=== PATIENT | male | born 1965 ===

== ENCOUNTER → 2020-01-06 | Outpatient (CLI) | payer BC ==
[~2020-01-06] MED LIST: NAPR500 PO; TRAM50 PO
[2020-01-06 14:15] LABS: BASOPHILS ABSOLUTE AUTO 0.08 K/mm3 (0.00-0.23); BASOPHILS PERCENT AUTO 1 % (0-2); EOSINOPHILS ABSOLUTE AUTO 0.26 K/mm3 (0.00-0.68); EOSINOPHILS PERCENT AUTO 4 % (0-6); Hematocrit 44.7 % (37.0-53.0); Hemoglobin 15.2 g/dL (13.5-17.5); IMMATURE GRAN ABSOLUTE AUTO 0.02 K/mm3 (0.00-0.10); IMMATURE GRAN PERCENT AUTO 0 % (0-1); LYMPHOCYTES ABSOLUTE AUTO 1.44 K/mm3 (0.84-5.20); LYMPHOCYTES PERCENT AUTO 22 % (21-46); MONOCYTES ABSOLUTE AUTO 0.57 K/mm3 (0.16-1.47); MONOCYTES PERCENT AUTO 9 % (4-13); Mean Corpuscular Volume 100 fL (80-100); Mean Platelet Volume 9.6 fL (9.1-12.4); NEUTROPHILS PERCENT AUTO 64 % (41-73); Platelet Count 254 K/mm3 (150-400); RDW Coefficient Variation 12.7 % (11.7-14.2); RDW Standard Deviation 46.9 fL (35.1-46.3); Red Blood Cell Count 4.47 M/mm3 (4.30-5.90); White Blood Cell Count 6.57 K/mm3 (4.00-11.30)
[2020-01-06 14:28] LABS: Alanine Aminotransfer (ALT/SGP 54 U/L (12-78); Albumin, Blood 3.7 g/dL (3.4-5.0); Albumin/Globulin Ratio 0.9 (0.8-1.8); Alk Phos 84 U/L (40-126); Anion Gap 4 mmol/L (6-16); Aspartate Aminotrans (AST/SGOT 39 U/L (12-37); Bilirubin, Total 0.5 mg/dL (0.1-1.0); Blood Urea Nitrogen 12 mg/dL (8-24); Bun/Creatinine Ratio 14.6 (12.0-20.0); CO2, Blood 32 mmol/L (21-32); Calcium, Blood 9.1 mg/dL (8.5-10.1); Chloride, Blood 104 mmol/L (98-108); Cholesterol 258 mg/dL (50-200); Creatinine, Blood 0.82 mg/dL (0.60-1.20); Globulin, Blood 4.3 g/dL (2.2-4.0); Glomerular Filtration Rate >60 (60-); Glucose, Blood 98 mg/dL (70-99); HDL Cholesterol 86 mg/dL (>39); LDL/HDL RATIO 1.9; Low Density Lipoprotein Chol 162 mg/dL (<110); Potassium, Blood 4.9 mmol/L (3.5-5.5); Sodium, Blood 140 mmol/L (136-145); Triglycerides 50 mg/dL (30-160); Very Low Density Lipoprot Chol 10 mg/dL (6-32)
== END | disposition home or self-care (01) ==
LOC: LAB SHORT 14:12 → LAB EV 14:12
PROVIDERS: Family Medicine
DX: I10 Essential (primary) hypertension (principal)
CPT/HCPCS: 80053; 80061; 85025

== ENCOUNTER 2020-02-07 13:42 | Observation (INO) | payer BC ==
[~2020-02-07] VITALS: Ht 175.3 cm; Wt 69.3 kg
[2020-02-07] MEDS ORDERED: Aspirin EC81 MG PO (14:22)
[2020-02-07] MEDS ORDERED: AMLO5 PO (14:22)
[2020-02-07 14:35] LABS: BASOPHILS ABSOLUTE AUTO 0.08 K/mm3 (0.00-0.23); BASOPHILS PERCENT AUTO 1 % (0-2); EOSINOPHILS ABSOLUTE AUTO 0.05 K/mm3 (0.00-0.68); EOSINOPHILS PERCENT AUTO 0 % (0-6); Hematocrit 43.8 % (37.0-53.0); Hemoglobin 14.9 g/dL (13.5-17.5); IMMATURE GRAN ABSOLUTE AUTO 0.05 K/mm3 (0.00-0.10); IMMATURE GRAN PERCENT AUTO 0 % (0-1); LYMPHOCYTES ABSOLUTE AUTO 1.66 K/mm3 (0.84-5.20); LYMPHOCYTES PERCENT AUTO 13 % (21-46); MONOCYTES ABSOLUTE AUTO 1.02 K/mm3 (0.16-1.47); MONOCYTES PERCENT AUTO 8 % (4-13); Mean Corpuscular HGB 34.4 pg (26.0-34.0); Mean Corpuscular Volume 101 fL (80-100); Mean Platelet Volume 9.9 fL (9.1-12.4); NEUTROPHILS ABSOLUTE AUTO 9.82 K/mm3 (1.96-9.15); NEUTROPHILS PERCENT AUTO 78 % (41-73); Platelet Count 241 K/mm3 (150-400); RDW Coefficient Variation 12.8 % (11.7-14.2); RDW Standard Deviation 48.4 fL (35.1-46.3); Red Blood Cell Count 4.33 M/mm3 (4.30-5.90); White Blood Cell Count 12.68 K/mm3 (4.00-11.30)
[2020-02-07 14:47] LABS: Alanine Aminotransfer (ALT/SGP 70 U/L (12-78); Albumin/Globulin Ratio 1.1 (0.8-1.8); Alk Phos 76 U/L (50-136); Anion Gap 5 mmol/L (6-16); Aspartate Aminotrans (AST/SGOT 41 U/L (12-37); Bilirubin, Total 0.6 mg/dL (0.1-1.0); Blood Urea Nitrogen 16 mg/dL (8-24); Bun/Creatinine Ratio 20.5 (12.0-20.0); CO2, Blood 29 mmol/L (21-32); Calcium, Blood 8.9 mg/dL (8.5-10.1); Chloride, Blood 104 mmol/L (98-108); Creatinine, Blood 0.78 mg/dL (0.60-1.20); Globulin, Blood 3.8 g/dL (2.2-4.0); Glomerular Filtration Rate >60 (60-); Glucose, Blood 102 mg/dL (70-99); Potassium, Blood 4.7 mmol/L (3.5-5.5); Sodium, Blood 138 mmol/L (136-145); Total Protein, Blood 7.8 g/dL (6.4-8.2); Troponin I <0.015 ng/mL (0.000-0.040)
[2020-02-07 14:53] LABS: International Normalized Ratio 0.97; Prothrombin Time Results 10.4 Sec (9.7-11.5)
[2020-02-07 14:57] LABS: Magnesium, Blood 2.1 mg/dL (1.6-2.4)
[2020-02-07 14:58] LABS: Thyroid Stimulating Hormone 0.752 uIU/mL (0.360-4.800)
[2020-02-07] MEDS ORDERED: THERA1 EACH PO (18:45)
--- NOTE | 2020-02-07 19:05 | NUR ---
"SOFTWARE TECHNICAL LEAD | ASSUMED CARE AND REPORTED OFF CARE REPORT FROM [facility], VITALS TAKEN. VISUALIZED PACEMAKER SITE, NO BLEEDING, BRUISING NOTED. INSTRUCTED PT ON ROM OF ARM R/T SURGICAL SITE. BEDSIDE REPORT DONE. NIGHT RN HARRY WAS GIVEN REPORT BY PEER RN. A/O. VSS. TALKING WITH STAFF."
--- NOTE | 2020-02-07 20:53 | NUR ---
ASSUMED CARE OF PATIENT AT APPROXIMATELY 1910 FROM DIAZ Harrison RN. PATIENT ALERT AND ORIENTED X4. S/P PACER TO LEFT CHEST WALL. REPORTEDLY PATIENT HAD SYNCOPE EPISODE IN ER AND 3RD DEGREE HB. SITE WNL. PIV X2 S/L. PATIENT DENIES PAIN, NUMBNESS, TINGLING, DIZZINESS AND NAUSEA. TOLERATED DINNER TRAY WELL. PATIENT INSTRUCTED ON POST PACER RESTRICTIONS. PATINET WAS HYPERTENSIVE; MEDICATED PER EMAR BY RANDI Scales RN AND GIVEN INFLUENZA VACCINE. PACED ON TELE; OXYGEN SATURATION ABOVE 90% ON ROOM AIR. PATIENT CURRENTLY RESTING IN BED; CALL LIGHT IN REACH; BED IN LOWEST POSISTION; BED ALARM ON; WILL CONTINUE TO MONITOR AND ASSESS UNTIL END OF SHIFT.
[2020-02-08 03:45] LABS: Hematocrit 41.8 % (37.0-53.0); Mean Corpuscular HGB 33.7 pg (26.0-34.0); Mean Corpuscular HGB Conc 33.5 g/dL (31.5-36.5); Mean Corpuscular Volume 101 fL (80-100); Mean Platelet Volume 10.2 fL (9.1-12.4); Platelet Count 203 K/mm3 (150-400); RDW Coefficient Variation 12.9 % (11.7-14.2); RDW Standard Deviation 48.1 fL (35.1-46.3); Red Blood Cell Count 4.15 M/mm3 (4.30-5.90); White Blood Cell Count 10.43 K/mm3 (4.00-11.30)
--- NOTE | 2020-02-08 06:01 | NUR ---
NO ACUTE CHANGES TO REPORT. PATIENT SLEPT FOR ABOUT SEVEN HOURS. COMPLAINED OF PAIN ONCE FROM FALL BEFORE ARRIVAL TO HOSPITAL; GOOD RESULTS WITH TYLENOL. WILL CONTINUE TO MONITOR AND ASSESS UNTIL END OF SHIFT.
--- NOTE | 2020-02-08 08:22 | NUR ---
ASSUMED CARE REPORT RECEIVED FROM NIGHTSHIFT RN. PT RESTING IN BED, ALERT AND ORIENTED. DENIES ANY CHEST PAIN OR DIZZINESS. INCISION ON L SHOULDER HAS GAUZE DRESSING WITH SMALL AMT OF DRAINAGE. PT DENIES PAIN AT SITE. PT REMINDED OF ACTIVITY RESTRICTIONS REGARDING L ARM RELATED TO PACER. NO OTHER REQUESTS FROM PT AT THIS TIME. CONTINUE TO MONITOR.
[2020-02-08] MEDS ORDERED: ACET325 PO (10:34)
--- NOTE | 2020-02-08 10:48 | NUR ---
PT DISCHARGED TO HOME VIA PRIVATE VEHICLE WITH HIS FRIEND. DISCHARGE INSTRUCTIONS FOR PACEMAKER DISCUSSED WITH PT AND WRITTEN COPY PROVIDED. PT VERBALIZED UNDERSTANDING. PT HAS PHONE NUMBER TO CALL [facility] FOR FOLLOW UP APPOINTMENT AND STATES HE IS COMFORTABLE DOING THAT ON MONDAY. SUPPLIES FOR DRESSING CHANGES SENT HOME WITH PT WELL. ALL BELONGINGS SENT HOME WITH PT.
== END 2020-02-08 10:47 | disposition home or self-care (01) ==
LOC: ER 13:42 → PCU 13:43
PROVIDERS: Emergency Medicine; Physician Assistant; ADMIT Internal Medicine
DX: I44.2 Atrioventricular block, complete (principal); I16.0 Hypertensive urgency; R00.1 Bradycardia, unspecified; I10 Essential (primary) hypertension; D72.829 Elevated white blood cell count, unspecified; F17.210 Nicotine dependence, cigarettes, uncomplicated; Z79.82 Long term (current) use of aspirin; Z79.899 Other long term (current) drug therapy; Z72.89 Other problems related to lifestyle
CPT/HCPCS: 33208; 33210; 33228; 36415; 71045; 71046; 76937; 80053; 83735; 84443; 84484; 85025; 85027; 85610; 90686; 93005; 93010; 96365; 96376; 99152; 99153; 99285-25; A9270; C1785; C1898; G0008; G0378; J0360; J0461; J0690; J1644; J2250; J3010; J7030; J7040

== ENCOUNTER 2022-01-07 15:07 | Inpatient (IN) | payer BC ==
[~2022-01-07] VITALS: Ht 175.3 cm; Wt 68.8 kg
[~2022-01-07 15:07] MED LIST changes: +ACET325 PO; +AMLO5 PO; +Aspirin EC81 MG PO; +THERA1 EACH PO
[2022-01-07 15:37] LABS: BASOPHILS ABSOLUTE AUTO 0.05 K/mm3 (0.00-0.23); BASOPHILS PERCENT AUTO 0 % (0-2); EOSINOPHILS ABSOLUTE AUTO 0.03 K/mm3 (0.00-0.68); EOSINOPHILS PERCENT AUTO 0 % (0-6); Hematocrit 34.5 % (37.0-53.0); IMMATURE GRAN ABSOLUTE AUTO 0.07 K/mm3 (0.00-0.10); IMMATURE GRAN PERCENT AUTO 1 % (0-1); LYMPHOCYTES ABSOLUTE AUTO 1.23 K/mm3 (0.84-5.20); LYMPHOCYTES PERCENT AUTO 9 % (21-46); MONOCYTES ABSOLUTE AUTO 0.58 K/mm3 (0.16-1.47); MONOCYTES PERCENT AUTO 4 % (4-13); Mean Corpuscular HGB 29.6 pg (26.0-34.0); Mean Corpuscular HGB Conc 31.9 g/dL (31.5-36.5); Mean Corpuscular Volume 93 fL (80-100); Mean Platelet Volume 9.5 fL (9.1-12.4); NEUTROPHILS ABSOLUTE AUTO 11.93 K/mm3 (1.96-9.15); NEUTROPHILS PERCENT AUTO 86 % (41-73); Platelet Count 416 K/mm3 (150-400); RDW Coefficient Variation 15.6 % (11.7-14.2); RDW Standard Deviation 52.2 fL (35.1-46.3); Red Blood Cell Count 3.72 M/mm3 (4.30-5.90); White Blood Cell Count 13.89 K/mm3 (4.00-11.30)
[2022-01-07 15:59] LABS: Alanine Aminotransfer (ALT/SGP 17 U/L (12-78); Albumin, Blood 2.6 g/dL (3.4-5.0); Albumin/Globulin Ratio 0.5 (0.8-1.8); Alk Phos 105 U/L (50-136); Anion Gap 7 mmol/L (6-16); Aspartate Aminotrans (AST/SGOT 15 U/L (12-37); Bilirubin, Total 0.6 mg/dL (0.1-1.0); Blood Urea Nitrogen 15 mg/dL (8-24); Bun/Creatinine Ratio 18.8 (12.0-20.0); CO2, Blood 25 mmol/L (21-32); Calcium, Blood 8.7 mg/dL (8.5-10.1); Chloride, Blood 102 mmol/L (98-108); Glomerular Filtration Rate >60 (60-); Glucose, Blood 178 mg/dL (70-99); Potassium, Blood 4.8 mmol/L (3.5-5.5); Sodium, Blood 134 mmol/L (136-145); Total Protein, Blood 7.6 g/dL (6.4-8.2)
[2022-01-07 17:13] LABS: PCO2 Arterial 29.5 mmHg (35-45); PO2 Arterial 56.4 mmHg (80-100); pH Blood Arterial 7.42 (7.35-7.45)
[2022-01-07 17:19] LABS: Influenza A, PCR NEGATIVE (NEGATIVE); Influenza B, PCR NEGATIVE (NEGATIVE); Resp Syncytial Virus, PCR NEGATIVE (NEGATIVE); SARS-Cov-2 (COVID-19) PCR, MMC NEGATIVE (NEGATIVE)
[2022-01-07] MEDS ORDERED: AMLO5 PO (20:44)
[2022-01-07] MEDS ORDERED: LOSA50 PO (20:45)
[2022-01-07] MEDS ORDERED: IBUP200 PO (20:47)
[2022-01-08 04:06] LABS: BASOPHILS ABSOLUTE AUTO 0.04 K/mm3 (0.00-0.23); BASOPHILS PERCENT AUTO 0 % (0-2); EOSINOPHILS ABSOLUTE AUTO 0.01 K/mm3 (0.00-0.68); EOSINOPHILS PERCENT AUTO 0 % (0-6); Hematocrit 36.1 % (37.0-53.0); Hemoglobin 11.2 g/dL (13.5-17.5); IMMATURE GRAN ABSOLUTE AUTO 0.18 K/mm3 (0.00-0.10); IMMATURE GRAN PERCENT AUTO 1 % (0-1); LYMPHOCYTES ABSOLUTE AUTO 1.89 K/mm3 (0.84-5.20); LYMPHOCYTES PERCENT AUTO 9 % (21-46); MONOCYTES ABSOLUTE AUTO 0.88 K/mm3 (0.16-1.47); MONOCYTES PERCENT AUTO 4 % (4-13); Mean Corpuscular HGB 29.3 pg (26.0-34.0); Mean Corpuscular Volume 95 fL (80-100); Mean Platelet Volume 9.9 fL (9.1-12.4); NEUTROPHILS ABSOLUTE AUTO 17.62 K/mm3 (1.96-9.15); NEUTROPHILS PERCENT AUTO 85 % (41-73); Platelet Count 401 K/mm3 (150-400); RDW Coefficient Variation 15.8 % (11.7-14.2); RDW Standard Deviation 53.8 fL (35.1-46.3); Red Blood Cell Count 3.82 M/mm3 (4.30-5.90); White Blood Cell Count 20.62 K/mm3 (4.00-11.30)
[2022-01-08 04:32] LABS: Alanine Aminotransfer (ALT/SGP 246 U/L (12-78); Albumin, Blood 2.6 g/dL (3.4-5.0); Albumin/Globulin Ratio 0.5 (0.8-1.8); Alk Phos 101 U/L (50-136); Anion Gap 12 mmol/L (6-16); Aspartate Aminotrans (AST/SGOT 304 U/L (12-37); Bilirubin, Total 0.9 mg/dL (0.1-1.0); Blood Urea Nitrogen 26 mg/dL (8-24); Bun/Creatinine Ratio 23.4 (12.0-20.0); CO2, Blood 21 mmol/L (21-32); Chloride, Blood 101 mmol/L (98-108); Creatinine, Blood 1.11 mg/dL (0.60-1.20); Globulin, Blood 4.9 g/dL (2.2-4.0); Glomerular Filtration Rate >60 (60-); Glucose, Blood 159 mg/dL (70-99); Potassium, Blood 5.1 mmol/L (3.5-5.5); Sodium, Blood 134 mmol/L (136-145); Total Protein, Blood 7.5 g/dL (6.4-8.2)
--- NOTE | 2022-01-08 06:03 | NUR ---
cALL PLACED OUT TO DR. DOMINGUEZ CONCERNING PATIENT CHANGE IN CONDITION. NEW ORDERS TO START PATIENT ON LASIX 40 NOW AND THREE TIMES A DAY, ATIVAN 1MG ONE TIME DOSE. TRANSFER PATIENT TO ICU IF BLOOD PRESSURE CONTINUE TO DROP AND START LEVO. MADE AWARE OF PATIENT MAP OF 46-65. RESP RATE 40-50'S.
--- NOTE | 2022-01-08 06:30 | NUR ---
LASIX 40 MG ADMINISTERED ORDERED. HEADLEY 14 FR INFILTED WITH 10ML SALINE WAS PUT IN PLACE. PATIENT TOLERATED WELL. MONITOR URINE OUTPUT. SMALL AMOUNT OF URINE WAS NOTED AFTER HEADLEY WAS INSERTED.cONTINUE TO MONITOR PATIENT CONDITION.
[2022-01-08 07:48] LABS: PCO2 Arterial 56.1 mmHg (35-45); PO2 Arterial 72.4 mmHg (80-100)
[2022-01-08 07:49] LABS: pH Blood Arterial 6.94 (7.35-7.45)
--- NOTE | 2022-01-08 08:22 | NUR ---
Arrived to Pt's room with kavon lim in progress. Pt's brother Williams at bedside and Pt's sister in law out in [place]. Offered supportive conversation to family members. Will offer continued supportive visits. Palliative Care will remain available.
--- NOTE | 2022-01-08 09:35 | NUR ---
TRANSFER PT ARRIVED TO ICU 2 AT 0715 AFTER ARRESTING IN PCU. PT ARRIVES INTUBATED, PACED RHYTHM, TACHYCARDIC, DUSKY COLORING THROUGHOUT. PT MOVED TO ICU BED AND STARTED TO MOVE EXTREMITIES. PT WAS ABLE TO FOLLOW COMMANDS TO SQUEEZE A HAND. RESTRAINTS PLACED TO PROTECT VITAL EQUIPMENT AND SEDATION STARTED PER DR. DOMINGUEZ. DR. MILLARD NOTIFIED OF PT'S CODE AND MOVE TO ICU. SBP AT THAT TIME WAS IN THE 90S, BUT DROPPED TO THE 50S WITH THE START OF PROPOFOL. DR. DOMINGUEZ GAVE ORDERS FOR LEVOPHED. R AC IV HAS GOOD BLOOD RETURN SO LEVOPHED STARTED THROUGH THAT LINE AND QUICKLY HAD TO BE INCREASED TO 15MCG/MIN. PT'S BROTHER MISSAEL ARRIVED AT THIS TIME. UPDATED BY DR. MELENDEZ. ABG DRAWN PER DR. MELENDEZ WHO WAS AT THE BEDSIDE. ORDERS FOR [address] MELENDEZ AFTER ABG RESULTS RECEIVED. BEFORE BICARB COULD BE GIVEN PT'S END TIDAL CO2 DROPPED TO 8, HR JD TO 50 AND PULSE LOST SO CPR RESTARTED, SEE CODE SHEET FOR CODE BLUE DOCUMENTATION. ROSC OBTAINED AFTER 10 MINUTES. LEVOPHED GOING AT 20 MCG/MIN, NS BOLUS INFUSING. DR. MELENDEZ ATTEMPTED TO PLACE R IJ CENTRAL LINE, BUT PT STARTED HAVING SIGNIFICANT CUFF LEAK, NOT GETTING VOLUMES ON THE VENTILATOR. RT CALLED, DR. MELENDEZ ABANDONED ATTEMPT FOR CENTRAL LINE IN ORDER TO STABILIZE AIRWAY. GLIDESCOPE USED TO ADVANCE AIRWAY WITH RT AND CUFF LEAK IMPROVED AND PT GETTING GOOD VOLUMES NOW. CXR COMPLETED AND VERIFIED BY DR. MELENDEZ. AFTER AIRWAY STABILIZED DR. MELENDEZ PLACED L FEMORAL CENTRAL LINE. PT STARTED MOVING HIS ARMS TOWARDS THE END OF PROCEDURE. ONCE LINE IN PLACE, LEVOPHED MOVED TO CENTRAL LINE, VASOPRESSIN STARTED AND PROPOFOL STARTED. OG PLACED AND ABOUT 400ML OF DARK, COFFEE GROUND APPEARING FLUID CAME OUT RIGHT AWAY. DR. MELENDEZ NOTIFIED. MIRROR POLISHER NOTIFIED THAT PT IS READY FOR STAT ECHO AND IS CURRENTLY PERFORMING ECHO RIGHT NOW. PT'S BROTHER REMAINS AT THE BEDSIDE AND IS BEING UPDATED THROUGHOUT. PT'S RAWLS RING WITH 3 KEYS GIVEN TO MISSAEL AT HIS REQUEST TO BE ABLE TO TEND TO PT'S DOG.
[2022-01-08 09:40] LABS: Hematocrit 30.9 % (37.0-53.0); Hemoglobin 8.9 g/dL (13.5-17.5); Mean Corpuscular HGB 29.8 pg (26.0-34.0); Mean Corpuscular HGB Conc 28.8 g/dL (31.5-36.5); Mean Platelet Volume 9.9 fL (9.1-12.4); NRBC ABSOLUTE 0.04 K/mm3 (0.00-0.02); NRBC Auto 0.2 /100 WBC (0.0-0.2); Platelet Count 230 K/mm3 (150-400); RDW Coefficient Variation 15.9 % (11.7-14.2); RDW Standard Deviation 59.2 fL (35.1-46.3); Red Blood Cell Count 2.99 M/mm3 (4.30-5.90); White Blood Cell Count 19.79 K/mm3 (4.00-11.30)
[2022-01-08 09:49] LABS: Mean Corpuscular Volume 103 fL (80-100)
[2022-01-08 09:51] LABS: Base Excess Venous -21.4 mmol/L; Bicarbonate Venous 9.2 mmol/L (24.0-30.0); PCO2 Venous 62.3 mmHg (38-42); PO2 Venous 121 mmHg (38-42); pH Blood Venous 6.88 (7.34-7.37)
[2022-01-08 10:03] LABS: Bun/Creatinine Ratio 22.4 (12.0-20.0); Calcium, Blood 8.5 mg/dL (8.5-10.1); Creatinine, Blood 1.56 mg/dL (0.60-1.20); Potassium, Blood 5.2 mmol/L (3.5-5.5)
[2022-01-08 12:23] LABS: International Normalized Ratio 1.76; Prothrombin Time Results 17.8 Sec (9.7-11.5)
--- NOTE | 2022-01-08 12:29 | NUR ---
REASSESSMENT ECHO COMPLETED, THEN DR. MILLARD CAME TO THE BEDSIDE AND DISCUSSED WITH PT'S BROTHER THE NEED FOR A ISABEL BECAUSE OF A PROBABLE VEGETATION ON ONE OF PT'S VALVES. PT'S BROTHER AGREED SO DR. MILLARD COMPLETED A ISABEL ON PT AND PT TOLERATED IT WELL. DR. MILLARD NOW ARRANGING TRANSFER FOR PT FOR HIGHER LEVEL OF CARE. AWAITING AN OPEN BED AT [facility] OR [facility]. PT IS CALM AND SEDATED CURRENTLY. SEDATION WITH PROPOFOL, FENTANYL AND ATIVAN. PT WAKES TO TACTILE STIMULI CURRENTLY, BUT WHEN SEDATION WEARS OFF HE IS FOLLOWING COMMANDS AND GETS AGITATED, TRYING TO SIT UP IN BED. LUNGS ARE CLEAR. BP LABILE. DR. MILLARD GAVE ORDERS TO KEEP MAP AT 65, NOT ABOVE, TITRATING LEVOPHED AND EPI TO MAINTAIN THAT. PT HAS NOT HAD ANY URINE OUTPUT THIS MORNING, DR. MILLADR AND AL AWARE. PT'S FEET ARE CURRENTLY MOTTLED AND DUSKY, BUT PT'S HANDS AND FEET HAVE FLUCTUATED THROUGHOUT THE MORNING IN THE LEVEL OF DUSKINESS AND MOTTLING.
[2022-01-08 13:54] LABS: Hematocrit 31.2 % (37.0-53.0)
--- NOTE | 2022-01-08 14:52 | NUR ---
WHILE WAITING FOR REACH TO ARRIVE TO TRANSPORT PT HIS END TIDAL, BP AND HR STARTED TO DROP. DR. MELENDEZ AND RT PAGED. EPI GTT INCREASED TO 8, FEMORAL PULSE WAS PRESENT BUT THEN STOPPED WHEN END TIDAL REACHED 8, COMPRESSIONS STARTED CODE CALLED, SEE CODE SHEET. PT'S BROTHER MISSAEL NOTIFIED BY RUG LAYER. AFTER 30 MINUTES PULSE NOT PALPABLE OR HEARD WITH DOPPLER. DR. MELENDEZ ASSESSED THE HEART WITH ULTRASOUND AND CALLED TIME OF AT 1445. DR. MELENDEZ AND VINCENT WITH PALLIATIVE CARE SPOKE TO PT'S BROTHER. DR. MELENDEZ NOTIFIED DR. MILLARD AND DR. FOUNTAIN. REACH HAD ARRIVED FOR TRANSPORT DURING THE CODE AND THEY WERE CALLED OFF. KONSTANTIN MORALES NOTIFIED OF PT'S .
--- NOTE | 2022-01-08 15:37 | NUR ---
Arrived to Pt's room with kavon lim in progress. Called Pt's brother Williams and provided update and emotional support. Williams reports plan to not come in. Instructed Williams that updates will be provided as often as possible. Spoke with Dr Hawk, Pt has . Dr Hawk calls family and reports Pt's passing. Allowed time for Pt's brother to process loss then called to offered condolences. Discussed homes with Williams reporting he will make some calls and call the hospital back. Palliative Care will remain available.
[2022-01-08 16:11] LABS: Albumin, Blood 1.7 g/dL (3.4-5.0); Albumin/Globulin Ratio 0.5 (0.8-1.8); Bilirubin, Total 2.1 mg/dL (0.1-1.0); Bun/Creatinine Ratio 22.7 (12.0-20.0); Calcium, Blood 8.1 mg/dL (8.5-10.1); Creatinine, Blood 1.72 mg/dL (0.60-1.20); Globulin, Blood 3.7 g/dL (2.2-4.0); Potassium, Blood 6.1 mmol/L (3.5-5.5)
[2022-01-08 16:12] LABS: Total Protein, Blood 5.4 g/dL (6.4-8.2)
== END 2022-01-08 14:45 ==
LOC: ER 15:07 → PCU 18:36 → ICUE 18:36 → PCU 20:28 → ICUE 01-08 07:14
PROVIDERS: Internal Medicine; Internal Medicine Critical Care Medicine; Physician Assistant; Student in an Organized Health Care Education/Training Program; ADMIT Internal Medicine
PROC: 5A12012 Performance of Cardiac Output, Single, Manual (ICD-10-PCS; principal; 2022-01-08)
PROC: 0BH17EZ Insertion of Endotracheal Airway into Trachea, Via Natural or Artificial Opening (ICD-10-PCS; 2022-01-08)
PROC: 3E033XZ Introduction of Vasopressor into Peripheral Vein, Percutaneous Approach (ICD-10-PCS; 2022-01-08)
PROC: 06HY33Z Insertion of Infusion Device into Lower Vein, Percutaneous Approach (ICD-10-PCS; 2022-01-08)
PROC: 5A09357 Assistance with Respiratory Ventilation, Less than 24 Consecutive Hours, Continuous Positive Airway Pressure (ICD-10-PCS; 2022-01-08)
DX: I11.0 Hypertensive heart disease with heart failure (principal); I33.0 Acute and subacute infective endocarditis; I21.A1 Myocardial infarction type 2; J96.01 Acute respiratory failure with hypoxia; I50.33 Acute on chronic diastolic (congestive) heart failure; J18.9 Pneumonia, unspecified organism; E87.2 Acidosis; N17.9 Acute kidney failure, unspecified; J44.1 Chronic obstructive pulmonary disease with (acute) exacerbation; J44.0 Chronic obstructive pulmonary disease with (acute) lower respiratory infection; Z20.822 Contact with and (suspected) exposure to COVID-19; I46.9 Cardiac arrest, cause unspecified; E87.5 Hyperkalemia; R57.0 Cardiogenic shock; I05.1 Rheumatic mitral insufficiency; Z78.1 Physical restraint status; F10.10 Alcohol abuse, uncomplicated; Z79.82 Long term (current) use of aspirin; Z95.0 Presence of cardiac pacemaker; Z79.899 Other long term (current) drug therapy; Z87.891 Personal history of nicotine dependence
CPT/HCPCS: 0241U; 31500; 36415; 36556; 36600; 71045; 80048; 80053; 82803; 83605; 83735; 83880; 84145; 84443; 84484; 85014; 85018; 85025; 85027; 85610; 85730; 87070; 87205; 92950; 93005; 93010; 93306; 93312; 93325; 94002; 94660; 94762; 96365; 96366; 96372-59; 96375; 99285-25; A9270; C1751; C9113; J0171; J0282; J0456; J0461; J0696; J1650; J1815; J1940; J2060; J2270; J2704; J3010; J3370; J7030; J7050; J7060; J7070